=== PATIENT | female | born 1940 | race African-American/Black ===

== ENCOUNTER 2022-10-13 17:31 | Observation (INO) | payer MEDICARE ==
[~2022-10-13 17:31] MED LIST: Iopamidol 370 76% 100 ML VIAL ONE
[2022-10-13 20:06] LABS: #Eosinphils 0.2 10x3/uL (0.0-0.5); #Monocytes 0.6 10x3/uL (0.0-1.1); #Neutrophils 2.3 10x3/uL (1.5-8.4); %Basophils 0.3 % (0.0-2.0); %Lymphocytes 50.2 % (18.0-47.0); %Monocytes 9.5 % (0.0-10.0); %Neutrophils 36.8 % (40.0-75.0); Hematocrit 32.3 % (34.9-44.5); Hemoglobin 10.5 g/dL (12.0-15.5); Mean Corpuscular HGB CONC 32.5 g/dL (32.0-36.0); Mean Platelet Volume 10.8 fl (7.4-10.4); Platelet Count 332 10x3/uL (150-450); RBC Distribution Width 14.1 % (11.5-14.5); Red Blood Cell (RBC) Count 4.04 10x6/uL (3.90-5.03); White Blood Cell (WBC) Count 6.1 10x3/uL (3.5-10.5)
[2022-10-13 20:16] LABS: ALT (SGPT) 13 U/L (8-55); AST (SGOT) 17 U/L (5-34); Albumin 4.3 g/dL (3.4-4.8); Alkaline Phosphatase 73 U/L (40-110); Anion Gap 14 mmol/L (10-20); BUN (Urea Nitrogen) 21 mg/dL (9.8-20.1); Bilirubin, Total 0.2 mg/dL (0.2-1.2); Calc. Creatinine Clearance 0 mL/min (70-130); Calcium 9.3 mg/dL (7.8-10.44); Carbon Dioxide 21 mmol/L (23-31); Chloride 107 mmol/L (98-107); Estimated GFR 52; Globulin 2.4 g/dL (2.4-3.5); Glucose 241 mg/dL (83-110); Lipase 71 U/L (8-78); Potassium 4.4 mmol/L (3.5-5.1); Protein, Total 6.7 g/dL (5.8-8.1); Sodium 138 mmol/L (136-145)
[2022-10-13] MEDS ORDERED: Ondansetron PF 4 MG/2 ML Vial IVP PRN (23:57)
[2022-10-13] MEDS ORDERED: diphenhydrAMINE 50 MG/ML VIAL ONE (23:57)
[2022-10-13] MEDS ORDERED: Guaifenesin DM 100-10/5 ML UDCUP PO PRN (23:57)
[2022-10-13] MEDS ORDERED: Senokot S 8.6-50 MG TAB PO PRN (23:57)
[2022-10-13] MEDS ORDERED: HYDROcodone/Acetaminophen 5/325 mg Tablet PO PRN (23:57)
[2022-10-13] MEDS ORDERED: Acetaminophen 325 MG TAB PO PRN (23:57)
[2022-10-13] MEDS ORDERED: methylPREDNISolone Sod Succ/PF 125 MG/2 ML VIAL ONE (23:57)
[2022-10-13] MEDS ORDERED: Calcium Carbonate 500 MG ChewTAB PO PRN (23:57)
[2022-10-13] MEDS ORDERED: Glucagon 1 MG/ML KIT IM PRN (23:58)
[2022-10-13] MEDS ORDERED: Dextrose 5% in Water 1,000 ML IV PRN (23:58)
[2022-10-13] MEDS ORDERED: Famotidine/PF 20 mg/2ml Vial ONE (23:58)
[2022-10-13] MEDS ORDERED: Dextrose 50% Abboject 50 ML SYRINGE SLOW IVP PRN (23:58)
[2022-10-13] MEDS ORDERED: Nitroglycerin 0.4 MG TAB (25 Tab Bottle) SL PRN (23:59)
[2022-10-14] MEDS ORDERED: Lidocaine 2% Viscous Solution 10 ML, Aluminum & Magnesium Hydroxide 30 ML SSW SCH
[2022-10-14] MEDS ORDERED: Lactated Ringer's 500 ML IV SCH (00:15)
[2022-10-14 02:34] VITALS: BMI 27.2
[2022-10-14] MEDS ORDERED: Nitroglycerin 2% Ointment 1 INCH/1 GM Packet ONE (02:38)
[2022-10-14] MEDS ORDERED: Nitroglycerin 2% Ointment 1 INCH/1 GM Packet TOP SCH (02:45)
[2022-10-14 04:50] LABS: Bilirubin Neg (Negative); Blood, Urine Negative (Negative); Clarity Clear (Clear); Glucose, Urine (Dipstick) 50 mg/dL (Negative); Ketone, Urine Negative (Negative); Leukocyte Negative (Negative); Nitrite Negative (Negative); Protein, Urine (Dipstick) Negative (Neg-Trace); Urobilinogen Normal mg/dL (Less than 2)
[2022-10-14 04:56] LABS: Cardiac Risk 2.7 (Less than 4.5)
[2022-10-14 05:13] LABS: RBC/HPF None Seen HPF (0-3)
[2022-10-14 05:14] LABS: Bacteria/HPF None Seen HPF (None Seen); Squamous Epithelial None Seen HPF (0-3); WBC/HPF 0-3 HPF (0-3)
[2022-10-14 05:17] LABS: Ferritin 52.59 ng/mL (10-291); Thyroid Stimulating Hormone 1.3424 uIU/mL (0.35-4.94)
[2022-10-14] MEDS ORDERED: Aspirin 81 mg Enteric Coated Tablet ONE (08:38)
[2022-10-14] MEDS ORDERED: Lisinopril 10 MG TAB ONE (08:38)
[2022-10-14] MEDS ORDERED: Gabapentin 100 MG CAP PO SCH (09:15)
[2022-10-14] MEDS: Aspirin 81 mg Enteric Coated Tablet PO SCH (09:33)
[2022-10-14] MEDS: Lisinopril 20 MG TAB PO SCH (09:34)
[2022-10-14] MEDS ORDERED: Gabapentin 300 MG CAP ONE (09:40)
[2022-10-14 12:28] LABS: Magnesium 1.8 mg/dL (1.6-2.6)
[2022-10-14 13:13] LABS: Hemoglobin A1c 7.7 % (4.0-6.0)
[2022-10-14] MEDS ORDERED: Atorvastatin Calcium 20 MG TAB PO SCH (21:00)
[2022-10-14] MEDS ORDERED: metFORMIN 500 MG TAB PO SCH (21:30)
[2022-10-14] MEDS: Gabapentin 100 MG CAP PO SCH (21:36)
[2022-10-15 05:38] LABS: #Neutrophils 6.1 10x3/uL (1.5-8.4); %Basophils 0.1 % (0.0-2.0); %Eosinophils 0.2 % (0.0-6.0); %Lymphocytes 23.5 % (18.0-47.0); %Monocytes 10.4 % (0.0-10.0); %Neutrophils 65.5 % (40.0-75.0); Hematocrit 31.8 % (34.9-44.5); Hemoglobin 10.3 g/dL (12.0-15.5); Mean Corpuscular HGB CONC 32.4 g/dL (32.0-36.0); Mean Corpuscular Hemoglobin 26.3 pg (27.0-33.0); Mean Corpuscular Volume 81.1 fl (81.6-98.3); Platelet Count 314 10x3/uL (150-450); RBC Distribution Width 14.1 % (11.5-14.5); Red Blood Cell (RBC) Count 3.92 10x6/uL (3.90-5.03); White Blood Cell (WBC) Count 9.3 10x3/uL (3.5-10.5)
[2022-10-15 05:40] LABS: Anion Gap 15 mmol/L (10-20); BUN (Urea Nitrogen) 26 mg/dL (9.8-20.1); Calc. Creatinine Clearance 44 mL/min (70-130); Calcium 8.9 mg/dL (7.8-10.44); Carbon Dioxide 21 mmol/L (23-31); Chloride 105 mmol/L (98-107); Estimated GFR 52; Glucose 219 mg/dL (83-110); Potassium 4.1 mmol/L (3.5-5.1); Sodium 137 mmol/L (136-145)
[2022-10-15] MEDS ORDERED: metFORMIN 500 MG TAB PO SCH (09:00)
[2022-10-15] MEDS: Lisinopril 20 MG TAB PO SCH (09:42)
[2022-10-15] MEDS: Aspirin 81 mg Enteric Coated Tablet PO SCH (09:42)
[2022-10-15] MEDS: Gabapentin 100 MG CAP PO SCH (09:43)
[2022-10-15 18:27] VITALS: BP 148/68; TEMP 98.2
== END 2022-10-15 17:00 | disposition home or self-care (01) ==
LOC: CSHERS 17:31 → CSHERHOLD 23:57 → UNDOADMOB 10-14 00:35 → CSHTELE 10-14 16:28
PROVIDERS: ADMIT Student in an Organized Health Care Education/Training Program; ATTEND Hospitalist
DX: R07.9 Chest pain, unspecified (principal); D72.820 Lymphocytosis (symptomatic); E11.9 Type 2 diabetes mellitus without complications; R79.89 Other specified abnormal findings of blood chemistry; R06.02 Shortness of breath; I24.9 Acute ischemic heart disease, unspecified; I10 Essential (primary) hypertension; Z91.041 Radiographic dye allergy status; Z88.0 Allergy status to penicillin; Z91.013 Allergy to seafood; Z88.8 Allergy status to other drugs, medicaments and biological substances; Z79.84 Long term (current) use of oral hypoglycemic drugs; Z79.899 Other long term (current) drug therapy; Z79.82 Long term (current) use of aspirin; Z85.3 Personal history of malignant neoplasm of breast; Z98.51 Tubal ligation status
CPT/HCPCS: 71045; 71275; 80048; 80053; 80061; 81001; 82728; 82962 ×2; 83036; 83540; 83550; 83690; 83735; 84443; 84484 ×3; 85025 ×2; 85379; 93005; 93306; 96372 ×2; 96374; 96375; 97116 ×2; 99285; G0378 ×3; 36415; 36416; J1200; J1650; J2930; J7120; Q9967; S0028

== ENCOUNTER 2023-04-23 15:04 | Outpatient (CLI) | payer MEDICARE | END 2023-04-23 15:05 | disposition home or self-care (01) | LOC: CSHCT 15:04 | PROVIDERS: ATTEND Family Medicine | DX: R41.3 Other amnesia (principal); R51.9 Headache, unspecified | CPT/HCPCS: 70450 ==

== ENCOUNTER 2023-05-13 17:31 | Emergency (ER) | payer MEDICARE ==
[2023-05-13 18:38] LABS: #Eosinphils 0.3 10x3/uL (0.0-0.5); #Monocytes 0.5 10x3/uL (0.0-1.1); #Neutrophils 2.4 10x3/uL (1.5-8.4); %Basophils 0.4 % (0.0-2.0); %Eosinophils 6.8 % (0.0-6.0); %Lymphocytes 32.2 % (18.0-47.0); %Monocytes 10.9 % (0.0-10.0); %Neutrophils 49.7 % (40.0-75.0); Hematocrit 33.8 % (34.9-44.5); Mean Corpuscular HGB CONC 32.5 g/dL (32.0-36.0); Mean Corpuscular Hemoglobin 26.3 pg (27.0-33.0); Mean Corpuscular Volume 80.7 fl (81.6-98.3); Mean Platelet Volume 10.3 fl (7.4-10.4); Platelet Count 359 10x3/uL (150-450); RBC Distribution Width 13.7 % (11.5-14.5); Red Blood Cell (RBC) Count 4.19 10x6/uL (3.90-5.03); White Blood Cell (WBC) Count 4.9 10x3/uL (3.5-10.5)
[2023-05-13 18:47] LABS: ALT (SGPT) 16 U/L (8-55); AST (SGOT) 18 U/L (5-34); Albumin 4.3 g/dL (3.4-4.8); Alkaline Phosphatase 82 U/L (40-110); Anion Gap 14 mmol/L (10-20); BUN (Urea Nitrogen) 19 mg/dL (9.8-20.1); Bilirubin, Total Less than 0.2 mg/dL (0.2-1.2); CK (CPK) 222 U/L (29-168); Calc. Creatinine Clearance 0 mL/min (70-130); Calcium 9.4 mg/dL (7.8-10.44); Carbon Dioxide 21 mmol/L (23-31); Chloride 107 mmol/L (98-107); Estimated GFR 49; Globulin 2.9 g/dL (2.4-3.5); Glucose 186 mg/dL (83-110); Magnesium 1.9 mg/dL (1.6-2.6); Potassium 4.5 mmol/L (3.5-5.1); Protein, Total 7.2 g/dL (5.8-8.1); Sodium 137 mmol/L (136-145)
== END 2023-05-13 20:49 | disposition home or self-care (01) ==
LOC: CSHERS 17:31
DX: G62.9 Polyneuropathy, unspecified (principal); T46.4X5A Adverse effect of angiotensin-converting-enzyme inhibitors, initial encounter; E11.9 Type 2 diabetes mellitus without complications; I10 Essential (primary) hypertension; I25.10 Atherosclerotic heart disease of native coronary artery without angina pectoris; Z55.6 Problems related to health literacy
CPT/HCPCS: 36415; 80053; 82550; 83735; 83880; 85025; 93005

== ENCOUNTER 2024-11-09 18:18 | Emergency (ER) | payer MEDICARE ==
[2024-11-09] MEDS ORDERED: Proparacaine 0.5% Opth 15 ML BOT ONE (19:26)
[2024-11-09] MEDS ORDERED: HYDROcodone/Acetaminophen 5/325 mg Tablet ONE (19:26)
[2024-11-09 21:00] LABS: #Basophils Less than 0.03 10x3/uL (0.0-0.2); #Eosinophils 0.13 10x3/uL (0.0-0.5); #Monocytes 0.58 10x3/uL (0.0-1.1); #Neutrophils 1.74 10x3/uL (1.5-8.4); %Basophils 0.2 % (0.0-2.0); %Eosinophils 2.8 % (0.0-6.0); %Lymphocytes 47.2 % (18.0-47.0); %Monocytes 12.4 % (0.0-10.0); %Neutrophils 37.2 % (40.0-75.0); Hematocrit 33.4 % (34.9-44.5); Hemoglobin 10.6 g/dL (12.0-15.5); Mean Corpuscular Hemoglobin 25.4 pg (27.0-33.0); Mean Corpuscular Volume 80.1 fL (81.6-98.3); Platelet Count 323 10x3/uL (150-450); Red Blood Cell (RBC) Count 4.17 10x6/uL (3.90-5.03); White Blood Cell (WBC) Count 4.68 10x3/uL (3.5-10.5)
[2024-11-09] MEDS ORDERED: cloNIDine 0.1 MG TAB ONE (21:10)
[2024-11-09 21:12] LABS: ALT (SGPT) 16 U/L (Less than 34); AST (SGOT) 24 U/L (11-34); Albumin 4.4 g/dL (3.1-4.5); Alkaline Phosphatase 65 U/L (40-110); Anion Gap 12 mmol/L (10-20); BUN (Urea Nitrogen) 22 mg/dL (9.8-20.1); Bilirubin, Total 0.2 mg/dL (0.3-1.2); Calc. Creatinine Clearance 0 mL/min (70-130); Calcium 9.3 mg/dL (7.8-10.44); Carbon Dioxide 28 mmol/L (23-31); Chloride 105 mmol/L (98-107); Globulin 2.8 g/dL (2.4-3.5); Glucose 159 mg/dL (83-110); Lipase 75 U/L (8-78); Potassium 4.5 mmol/L (3.5-5.1); Sodium 140 mmol/L (136-145)
[2024-11-09 21:16] LABS: Troponin I 0.010 ng/mL (< 0.028)
== END 2024-11-09 22:23 | disposition home or self-care (01) ==
LOC: CSHERS 18:18
DX: H40.9 Unspecified glaucoma (principal); E11.9 Type 2 diabetes mellitus without complications; I10 Essential (primary) hypertension; I25.10 Atherosclerotic heart disease of native coronary artery without angina pectoris
CPT/HCPCS: 36415; 70450; 71045; 80053; 83690; 84484; 85025; 93005

== ENCOUNTER 2025-01-18 22:23 | Inpatient (IN) | payer MEDICARE ==
[2025-01-18 22:50] LABS: #Basophils Less than 0.03 10x3/uL (0.0-0.2); #Eosinophils 0.16 10x3/uL (0.0-0.5); #Monocytes 0.58 10x3/uL (0.0-1.1); #Neutrophils 2.12 10x3/uL (1.5-8.4); %Basophils 0.4 % (0.0-2.0); %Eosinophils 3.3 % (0.0-6.0); %Lymphocytes 40.7 % (18.0-47.0); %Monocytes 11.9 % (0.0-10.0); %Neutrophils 43.5 % (40.0-75.0); Hematocrit 32.3 % (34.9-44.5); Hemoglobin 10.3 g/dL (12.0-15.5); Mean Corpuscular Hemoglobin 25.7 pg (27.0-33.0); Mean Corpuscular Volume 80.5 fL (81.6-98.3); Platelet Count 301 10x3/uL (150-450); Red Blood Cell (RBC) Count 4.01 10x6/uL (3.90-5.03); White Blood Cell (WBC) Count 4.87 10x3/uL (3.5-10.5)
[2025-01-18 23:10] LABS: ALT (SGPT) 26 U/L (Less than 34); AST (SGOT) 29 U/L (11-34); Albumin 3.8 g/dL (3.1-4.5); Alkaline Phosphatase 91 U/L (40-110); Anion Gap 14 mmol/L (10-20); BUN (Urea Nitrogen) 19 mg/dL (9.8-20.1); Bilirubin, Total 0.2 mg/dL (0.3-1.2); Calc. Creatinine Clearance 0 mL/min (70-130); Calcium 8.5 mg/dL (7.8-10.44); Carbon Dioxide 20 mmol/L (23-31); Chloride 108 mmol/L (98-107); Globulin 2.5 g/dL (2.4-3.5); Glucose 350 mg/dL (83-110); Potassium 4.2 mmol/L (3.5-5.1); Sodium 138 mmol/L (136-145)
[2025-01-18 23:15] LABS: Troponin I Less than 0.010 ng/mL (< 0.028)
[2025-01-18] MEDS ORDERED: Dextrose 50% Abboject 50 ML SYRINGE SLOW IVP PRN (23:50)
[2025-01-18] MEDS ORDERED: Glucagon 1 MG/ML KIT IM PRN (23:50)
[2025-01-18] MEDS ORDERED: Acetaminophen 325 MG TAB PO PRN (23:50)
[2025-01-18] MEDS ORDERED: Senokot S 8.6-50 MG TAB PO PRN (23:50)
[2025-01-18] MEDS ORDERED: Calcium Carbonate 500 MG ChewTAB PO PRN (23:50)
[2025-01-18] MEDS ORDERED: Ondansetron PF 4 MG/2 ML Vial IVP PRN (23:50)
[2025-01-18] MEDS ORDERED: Aspirin Chewable 81 MG TAB ONE (23:54)
[2025-01-19] MEDS ORDERED: Nitroglycerin 0.4 MG TAB (25 Tab Bottle) SL PRN (00:11)
[2025-01-19 02:23] VITALS: BMI 28.5
[2025-01-19 05:42] LABS: Iron 47 ug/dL (50-170); Iron Binding Capacity, Total 261 mcg/dL (265-497)
[2025-01-19 06:07] LABS: Troponin I 0.015 ng/mL (< 0.028)
[2025-01-19 06:19] LABS: Ferritin 50.25 ng/mL (10-291)
[2025-01-19 07:53] LABS: Troponin I 0.015 ng/mL (< 0.028)
[2025-01-19] MEDS: metFORMIN 500 MG TAB PO SCH (09:42)
[2025-01-19] MEDS: Pantoprazole 40 MG DR.TAB PO SCH (09:43)
[2025-01-19] MEDS: Metoprolol Succinate XL 50 MG ER.TAB PO SCH (09:43)
[2025-01-19] MEDS: glipiZIDE 5 MG TAB PO SCH (09:43)
[2025-01-19] MEDS: Enoxaparin 40 MG (0.4 mL) SYRINGE SC SCH (09:44)
[2025-01-19] MEDS: Aspirin 81 mg Enteric Coated Tablet PO SCH (09:44)
[2025-01-19] MEDS: Lisinopril 20 MG TAB PO SCH (16:36)
[2025-01-20 11:57] VITALS: BP 171/72; TEMP 98.5
== END 2025-01-20 18:47 | disposition home health service (06) | DRG 880 ==
LOC: CSHERS 22:23 → CSHTELE 23:52 → OBSVTOIN 01-20 13:31
PROVIDERS: ADMIT Student in an Organized Health Care Education/Training Program; ATTEND Student in an Organized Health Care Education/Training Program
DX: F41.0 Panic disorder [episodic paroxysmal anxiety] (principal); I16.1 Hypertensive emergency; F41.9 Anxiety disorder, unspecified; E78.5 Hyperlipidemia, unspecified; R06.00 Dyspnea, unspecified; D63.1 Anemia in chronic kidney disease; N18.30 Chronic kidney disease, stage 3 unspecified; I12.9 Hypertensive chronic kidney disease with stage 1 through stage 4 chronic kidney disease, or unspecified chronic kidney disease; E11.22 Type 2 diabetes mellitus with diabetic chronic kidney disease; H40.9 Unspecified glaucoma; Z98.51 Tubal ligation status; Z85.3 Personal history of malignant neoplasm of breast; Z92.3 Personal history of irradiation; Z91.041 Radiographic dye allergy status; Z88.0 Allergy status to penicillin; Z91.013 Allergy to seafood; Z88.8 Allergy status to other drugs, medicaments and biological substances; Z90.12 Acquired absence of left breast and nipple; Z79.84 Long term (current) use of oral hypoglycemic drugs; Z79.899 Other long term (current) drug therapy
CPT/HCPCS: 36415; 36416; 71045; 80053; 82728; 83540; 83550; 83880; 84443; 84484; 85025; 85379; 93005; 93970; 96372; G0378; J1650; J1815